=== PATIENT | male | born 1955 | race Caucasian/White ===

== ENCOUNTER → 2019-10-11 | Outpatient (CLI) | payer MEDICARE, OTHER ==
--- NOTE | 2019-10-13 10:00 | Diagnostic Imaging Report ---
Modified barium swallow, 10/11/2019. History: Dysphagia. Fluoro time: 1.1 min. Dose: 5.9 mGy ([facility]) Discussion: Fluoroscopy was performed by instrument and electrical technician. A radiologist was not present for exam. Fluoroscopic observation and imaging of the oral cavity, oropharynx, and hypopharynx was performed in the lateral projection during swallowing of liquids and solids, administered by speech pathology. See speech pathologist report for findings. Signed by: Akira Salmeron on 10/13/2019 9:58 AM
== END ==
LOC: DX 10:20
PROVIDERS: ATTEND Otolaryngology
DX: R13.13 Dysphagia, pharyngeal phase (principal); K21.9 Gastro-esophageal reflux disease without esophagitis
CPT/HCPCS: 74230